=== PATIENT | female | born 1965 | race Caucasian/White ===

== ENCOUNTER 2017-01-01 21:40 | Emergency (ER) | payer SELFPAY ==
[~2017-01-01] VITALS: Ht 170.2 cm; Wt 74.8 kg
[2017-01-01 21:40] VITALS: BP 153/102
[2017-01-01] MEDS ORDERED: LORAZEPAM 1 MG TABLET ONE (22:28)
[2017-01-01] MEDS ORDERED: LORAZEPAM 0.5 MG TABLET PO ONE (22:30)
--- NOTE | 2017-01-01 23:05 | NUR ---
Patient discharged to home in stable condition. Written and verbal after care instructions given. Patient verbalizes understanding of instruction. ambulatory with a steady gait noted. pt aaox4 no acute distress noted, resp even and unlabored. advice pt not to drive or operate any machinery due to pt was given ativan. pt verbalize understanding.
== END 2017-01-01 23:07 | disposition home or self-care (01) ==
LOC: ER 21:44
DX: F41.9 Anxiety disorder, unspecified (principal); J45.909 Unspecified asthma, uncomplicated
CPT/HCPCS: A4606; Z7610

== ENCOUNTER 2018-01-22 20:15 | Emergency (ER) | payer MEDICAID ==
[~2018-01-22] VITALS: Ht 170.2 cm; Wt 77.1 kg
--- NOTE | 2018-01-22 20:39 | NUR ---
PT PRESENTED TO THE ER WTIH A C/O ANXIETY, STRESS, TONGUE NUMBNESS, LUE AND LLE TINGLING RT BACK AND RT LUNG PAIN WITH INSPIRATION AND MOVEMENT. PT AMBULATED TO BED #4 WITH A STADY GAIT. NAD NOTED.
[2018-01-22 20:50] VITALS: BP 156/95
== END 2018-01-22 20:51 | disposition home or self-care (01) ==
LOC: ER 20:20
DX: N95.1 Menopausal and female climacteric states (principal); F41.9 Anxiety disorder, unspecified; J45.909 Unspecified asthma, uncomplicated; F10.10 Alcohol abuse, uncomplicated; F17.200 Nicotine dependence, unspecified, uncomplicated; Z90.89 Acquired absence of other organs
CPT/HCPCS: A4606; Z7502; Z7610

== ENCOUNTER 2018-08-19 12:02 | Emergency (ER) | payer MEDICAID, OTHER ==
[~2018-08-19] VITALS: Ht 170.2 cm; Wt 69.9 kg
[2018-08-19 12:14] VITALS: BP 114/78
--- NOTE | 2018-08-19 12:45 | NUR ---
PELVIC, DYSURIA, BURNING ON URINATION FOR WEEKS. FINISHED ANTIBIOTICS W/ NO RELIEF. PT AAOX4, VSS. DENIES ANY VAG DISHCARGE OR BLEEDING @ THIS TIME. PT SEEN & EVAL'D BY AMOL SANTORO & WILL CONT TO MONITOR.
[2018-08-19 12:50] LABS: APPEARANCE,URINE Clear (CLEAR); BILIRUBIN,URINE Negative (NEGATIVE); BLOOD, URINE Trace-intact Ery/uL (NEGATIVE); COLOR,URINE Yellow (YELLOW); KETONES,URINE Negative (NEGATIVE); LEUKOCYTE ESTERASE ,URINE Trace (NEGATIVE); NITRITE, URINE Negative (NEGATIVE); PH,URINE 6.5 (5.0-8.0); PROTEIN,URINE Trace mg/dl (NEGATIVE); UGLUCOSE Negative (NEGATIVE); UROBILINOGEN,URINE 0.2 EU/dL (0.2)
[2018-08-19 13:28] LABS: SQUAMOUS EPITHELIAL CELL,UR Rare /HPF (None Seen)
[2018-08-19 13:29] LABS: MUCUS,URINE Rare /LPF (None Seen)
[2018-08-19 13:30] LABS: BACTERIA,URINE Few /HPF (None Seen)
[2018-08-19 13:33] LABS: RBC,URINE 0-2 /HPF (0-2)
== END 2018-08-19 14:46 | disposition home or self-care (01) ==
LOC: ER 12:06
DX: N39.0 Urinary tract infection, site not specified (principal); S61.412D Laceration without foreign body of left hand, subsequent encounter; J45.909 Unspecified asthma, uncomplicated; F41.9 Anxiety disorder, unspecified; Z98.890 Other specified postprocedural states; Z90.89 Acquired absence of other organs; F17.200 Nicotine dependence, unspecified, uncomplicated; X58.XXXD Exposure to other specified factors, subsequent encounter
CPT/HCPCS: 81000-TC; 87086-TC; A4606; Z7610

== ENCOUNTER 2020-05-26 18:40 | Emergency (ER) | payer OTHER ==
[~2020-05-26] VITALS: Ht 167.6 cm; Wt 81.6 kg
[2020-05-26 19:17] VITALS: BP 124/92
== END 2020-05-26 19:42 | disposition home or self-care (01) ==
LOC: ER 19:41
DX: L60.0 Ingrowing nail (principal); K13.0 Diseases of lips; J45.909 Unspecified asthma, uncomplicated; F41.9 Anxiety disorder, unspecified; F17.200 Nicotine dependence, unspecified, uncomplicated; Z98.890 Other specified postprocedural states; Z90.89 Acquired absence of other organs